=== PATIENT | female | born 1990 | race Two or more races ===

== ENCOUNTER 2016-10-23 10:15 | Outpatient (CLI) | payer OTHER, MEDICAID ==
[~2016-10-23] VITALS: Ht 157.5 cm; Wt 100.0 kg
== END 2016-10-23 11:59 | disposition home or self-care (01) ==
LOC: LDOP 10:15
PROVIDERS: ATTEND Student in an Organized Health Care Education/Training Program
DX: O26.892 Other specified pregnancy related conditions, second trimester (principal); O34.12 Maternal care for benign tumor of corpus uteri, second trimester; D25.9 Leiomyoma of uterus, unspecified; R10.9 Unspecified abdominal pain; Z3A.23 23 weeks gestation of pregnancy
CPT/HCPCS: 59025; 99201; G0463

== ENCOUNTER 2017-02-07 08:44 | Inpatient (IN) | payer OTHER, MEDICAID ==
[~2017-02-07] VITALS: Ht 157.5 cm; Wt 109.0 kg
[2017-02-07] MEDS ORDERED: OXYTOCIN 30U/ 0.9% NaCL 500ML 500 ML IV SCH (10:45)
[2017-02-07] MEDS ORDERED: LACTATED RINGERS 1,000 ML IV SCH ×2 (10:45→11:00)
[2017-02-07 10:51] VITALS: BP 121/81
[2017-02-07] MEDS ORDERED: NEWBORN KIT ONE (10:59)
[2017-02-07] MEDS ORDERED: LACTATED RINGERS 1,000 ML IVBOLUS ONE (11:00)
[2017-02-07] MEDS ORDERED: CEFAZOLIN PMX 1GM/50ML 50 ML IVPB ONE (11:00)
[2017-02-07] MEDS ORDERED: SODIUM CITRATE/CITRIC ACID 30 ML UDC PO ONE (11:00)
[2017-02-07] MEDS ORDERED: METOCLOPRAMIDE 5 MG/ML, 2ML IV ONE (11:00)
[2017-02-07 11:14] LABS: HEMATOCRIT 34.2 % (34.6-47.8); HEMOGLOBIN 11.1 g/dL (11.7-16.4); WHITE BLOOD COUNT 8.1 x10^3/uL (3.4-10)
[2017-02-07] MEDS ORDERED: METOCLOPRAMIDE 5 MG/ML, 2ML ONE (12:02)
[2017-02-07] MEDS ORDERED: SODIUM CITRATE/CITRIC ACID 30 ML UDC ONE (12:02)
[2017-02-07] MEDS ORDERED: OXYTOCIN 30U/ 0.9% NaCL 500ML 500 ML ONE (12:02)
[2017-02-07] MEDS ORDERED: OXYTOCIN 10 UNITS/ML, 1ML ONE (13:14)
[2017-02-07] MEDS ORDERED: CEFAZOLIN 1,000 MG ONE (13:14)
[2017-02-07] MEDS ORDERED: OXYcodone 5 MG/5 ML ORAL.SOL UDC PO PRN (13:30)
[2017-02-07] MEDS ORDERED: morphine SULFATE 10 MG/ML, 1ML IV PRN (13:30)
[2017-02-07] MEDS ORDERED: FENTANYL PF 100 MCG/2ML IV PRN (13:30)
[2017-02-07] MEDS ORDERED: MEPERIDINE/PF 25MG/0.5ML IVPush PRN (13:30)
[2017-02-07] MEDS ORDERED: ONDANSETRON 2MG/ML, 2ML IVPush PRN (13:30)
[2017-02-07] MEDS: LACTATED RINGERS 1,000 ML IV SCH ×3 (14:24→22:39)
[2017-02-07] MEDS: OXYTOCIN 30U/ 0.9% NaCL 500ML 500 ML IV SCH (14:24)
[2017-02-07] MEDS ORDERED: ONDANSETRON 2MG/ML, 2ML IV PRN (14:30)
[2017-02-07] MEDS ORDERED: MISOPROSTOL 200 MCG TABLET PR PRN (14:30)
[2017-02-07] MEDS ORDERED: ACETAMINOPHEN 325 MG TABLET PO PRN (14:30)
[2017-02-07] MEDS ORDERED: morphine SULFATE 10 MG/ML, 1ML IVPush PRN (14:30)
[2017-02-07] MEDS ORDERED: KETOROLAC 30 MG/1 ML ONE (15:33)
[2017-02-07] MEDS ORDERED: morphine SULFATE 10 MG/ML, 1ML ONE (15:33)
[2017-02-07] MEDS: KETOROLAC 30 MG/1 ML IV SCH ×2 (15:35→21:35)
[2017-02-07 17:00] VITALS: BP 123/76
[2017-02-07 17:34] LABS: HEMATOCRIT 29.4 % (34.6-47.8); HEMOGLOBIN 9.6 g/dL (11.7-16.4); WHITE BLOOD COUNT 11.9 x10^3/uL (3.4-10)
[2017-02-07 20:00] VITALS: BP 116/70
[2017-02-07] MEDS: OXYcodone/APAP 5/325MG TABLET PO PRN (21:35)
[2017-02-08 00:10] VITALS: BP 117/70
[2017-02-08] MEDS: OXYTOCIN 30U/ 0.9% NaCL 500ML 500 ML IV SCH ×2 (00:24→04:05)
[2017-02-08] MEDS: LACTATED RINGERS 1,000 ML IV SCH ×4 (00:24→06:33)
[2017-02-08] MEDS: OXYcodone IR 5MG TABLET PO PRN ×4 (01:45→20:36)
[2017-02-08] MEDS: KETOROLAC 30 MG/1 ML IV SCH ×4 (03:55→21:41)
[2017-02-08 04:02] VITALS: BP 111/62
[2017-02-08] MEDS: OXYcodone/APAP 5/325MG TABLET PO PRN (05:40)
[2017-02-08 06:21] LABS: HEMATOCRIT 24.9 % (34.6-47.8); HEMOGLOBIN 8.1 g/dL (11.7-16.4); WHITE BLOOD COUNT 8.2 x10^3/uL (3.4-10)
[2017-02-08] MEDS ORDERED: PRENATAL VIT/IRON/FA 1 EACH TABLET ONE (07:48)
[2017-02-08] MEDS: PRENATAL VIT/IRON/FA 1 EACH TABLET PO SCH (07:50)
[2017-02-08] MEDS: FERROUS SULFATE 325 MG TABLET PO SCH ×2 (07:50→15:37)
[2017-02-08 08:40] VITALS: BP 120/62
[2017-02-08 12:44] VITALS: BP 108/61
[2017-02-08 19:15] VITALS: BP 108/57
[2017-02-08] MEDS: DOCUSATE 100 MG CAPSULE PO PRN (20:36)
[2017-02-09] MEDS: OXYcodone IR 5MG TABLET PO PRN ×5 (00:50→22:14)
[2017-02-09] MEDS: KETOROLAC 30 MG/1 ML IV SCH ×2 (03:38→09:55)
[2017-02-09] MEDS: OXYTOCIN 30U/ 0.9% NaCL 500ML 500 ML IV SCH ×2 (06:24→16:24)
[2017-02-09] MEDS: LACTATED RINGERS 1,000 ML IV SCH ×4 (06:24→22:24)
[2017-02-09 07:50] VITALS: BP 100/63
[2017-02-09] MEDS: PRENATAL VIT/IRON/FA 1 EACH TABLET PO SCH (08:49)
[2017-02-09] MEDS: FERROUS SULFATE 325 MG TABLET PO SCH ×2 (08:49→16:30)
[2017-02-09] MEDS: DOCUSATE 100 MG CAPSULE PO PRN ×2 (08:49→22:14)
[2017-02-09] MEDS: IBUPROFEN 600 MG TABLET PO PRN ×2 (16:30→22:14)
[2017-02-09 19:50] VITALS: BP 102/65
[2017-02-10] MEDS: OXYTOCIN 30U/ 0.9% NaCL 500ML 500 ML IV SCH (02:24)
[2017-02-10] MEDS: LACTATED RINGERS 1,000 ML IV SCH ×2 (02:24→06:24)
[2017-02-10] MEDS ORDERED: IBUP-1222 PO (03:43)
[2017-02-10] MEDS ORDERED: OXYC-302 PO (03:44)
[2017-02-10] MEDS: OXYcodone IR 5MG TABLET PO PRN (05:24)
[2017-02-10] MEDS: IBUPROFEN 600 MG TABLET PO PRN (05:24)
[2017-02-10 07:30] VITALS: BP 127/79
[2017-02-10] MEDS: PRENATAL VIT/IRON/FA 1 EACH TABLET PO SCH (07:36)
[2017-02-10] MEDS: FERROUS SULFATE 325 MG TABLET PO SCH (07:36)
[2017-02-10] MEDS: DOCUSATE 100 MG CAPSULE PO PRN (07:36)
== END 2017-02-10 12:30 | disposition home or self-care (01) | DRG 766 ==
LOC: LDIP 10:16 → 2NW 16:25
PROVIDERS: ADMIT Obstetrics & Gynecology; ATTEND Obstetrics & Gynecology
PROC: 10D00Z1 Extraction of Products of Conception, Low, Open Approach (ICD-10-PCS; principal; 2017-02-07)
DX: O34.211 Maternal care for low transverse scar from previous cesarean delivery (principal); D25.9 Leiomyoma of uterus, unspecified; O34.13 Maternal care for benign tumor of corpus uteri, third trimester; Z3A.38 38 weeks gestation of pregnancy; Z37.0 Single live birth
CPT/HCPCS: 36415; 82803; 85025; 85027; 86850; 86900; J0690; J1885; J2405; J2590; J2765; J7120

== ENCOUNTER → 2019-08-13 | Outpatient (CLI) | payer OTHER, MEDICAID ==
[~2019-08-13] MED LIST: IBUP-1222 PO; OXYC-302 PO; PHEN37.53 PO
[2019-08-13 11:14] LABS: BASOPHILS # (AUTO) 0.02 x10^3/uL (0-0.1); BASOPHILS % (AUTO) 0 % (0-1); EOSINOPHILS # (AUTO) 0.21 x10^3/uL (0-0.4); EOSINOPHILS % (AUTO) 2 % (1-7); LYMPHOCYTES # (AUTO) 2.68 x10^3/uL (1-3.4); LYMPHOCYTES % (AUTO) 31 % (22-44); MD NO; MEAN CORPUSCULAR HEMOGLOBIN 30.1 pg (27.0-34.8); MEAN CORPUSCULAR HGB CONC 33.5 g/dL (32.4-35.8); MEAN CORPUSCULAR VOLUME 89.7 fL (80-100); MEAN PLATELET VOLUME 9.7 fL (7.4-10.4); MONOCYTES # (AUTO) 0.43 x10^3/uL (0.2-0.8); MONOCYTES % (AUTO) 5 % (2-9); NEUTROPHILS # (AUTO) 5.36 x10^3/uL (1.8-6.8); NEUTROPHILS % (AUTO) 62 % (42-75); PLATELET COUNT 312 x10^3/uL (130-400); RED BLOOD COUNT 4.56 x10^6/uL (3.82-5.3); RED CELL DISTRIBUTION WIDTH 13.3 % (9.6-15.2)
[2019-08-13 11:21] LABS: MICROSCOPIC NOT IND
[2019-08-13 11:27] LABS: ALBUMIN 3.6 g/dL (3.4-5.0); ANION GAP 5 mmol/L (5-15); CHLORIDE 108 mmol/L (98-107)
[2019-08-13 11:35] LABS: ALANINE AMINOTRANSFERASE 23 U/L (12-78); ALKALINE PHOSPHATASE 63 U/L (45-117); BILIRUBIN,TOTAL 0.4 mg/dL (0.2-1.0); CREATININE 0.84 mg/dL (0.55-1.02); TOTAL PROTEIN 7.8 g/dL (6.4-8.2)
== END | disposition home or self-care (01) ==
LOC: STAR 10:06
PROVIDERS: ATTEND Obstetrics & Gynecology
DX: Z01.818 Encounter for other preprocedural examination (principal); Z11.59 Encounter for screening for other viral diseases; R10.2 Pelvic and perineal pain; N92.0 Excessive and frequent menstruation with regular cycle; D25.9 Leiomyoma of uterus, unspecified
CPT/HCPCS: 36415; 80053; 81003; 84702; 85025; 93005; U0001

== ENCOUNTER 2019-08-18 10:16 | Inpatient (IN) | payer OTHER, MEDICAID ==
[~2019-08-18] VITALS: Ht 158.8 cm; Wt 95.0 kg
[2019-08-18] MEDS ORDERED: LACTATED RINGERS 1,000 ML IV SCH (11:11)
[2019-08-18] MEDS ORDERED: CHLORHEXIDINE 15 ML UDC MM ONE (11:30)
[2019-08-18 11:48] LABS: HCG UR SG 1.015 (1.003-1.030)
[2019-08-18] MEDS ORDERED: MIDAZOLAM 1 MG/ML, 2ML ONE (12:21)
[2019-08-18] MEDS ORDERED: FENTANYL PF 250 MCG/5ML ONE ×2 (12:23→12:54)
[2019-08-18] MEDS ORDERED: DEXAMETHASONE 4 MG/ML, 1ML ONE ×2 (12:29→12:34)
[2019-08-18] MEDS ORDERED: ROCURONIUM 10MG/ML,5ML ONE (12:29)
[2019-08-18] MEDS ORDERED: SUCCINYLCHOLINE 20 MG/ML, 10ML ONE (12:29)
[2019-08-18] MEDS ORDERED: CEFAZOLIN 1,000 MG ONE ×2 (12:29→12:34)
[2019-08-18] MEDS ORDERED: PROPOFOL 10 MG/ML, 20ML ONE (12:29)
[2019-08-18] MEDS ORDERED: KETOROLAC 30 MG/1 ML ONE (12:34)
[2019-08-18] MEDS ORDERED: ONDANSETRON 2MG/ML, 2ML ONE ×2 (13:45→13:46)
[2019-08-18] MEDS ORDERED: SUGAMMADEX 200 MG/2 ML IVPush ONE (13:45)
[2019-08-18] MEDS ORDERED: FENTANYL PF 100 MCG/2ML ONE ×2 (13:56→14:28)
[2019-08-18] MEDS: FENTANYL PF 100 MCG/2ML IV PRN ×2 (14:30→14:40)
[2019-08-18] MEDS ORDERED: ONDANSETRON 2MG/ML, 2ML IVPush PRN (14:30)
[2019-08-18] MEDS ORDERED: PROMETHAZINE 12.5 MG SUPP PR PRN (14:30)
[2019-08-18] MEDS ORDERED: ALBUTEROL SULFATE 2.5 MG/3 ML NPPB PRN (14:30)
[2019-08-18] MEDS ORDERED: OXYcodone 5 MG/5 ML ORAL.SOL UDC PO PRN (14:30)
[2019-08-18] MEDS ORDERED: ACETAMINOPHEN 325 MG TABLET PO PRN ×2 (14:30→17:00)
[2019-08-18] MEDS ORDERED: LABETALOL 5MG/ML, 20ML IV PRN (14:30)
[2019-08-18] MEDS ORDERED: EPHEDRINE 50 MG/ML, 1ML IVPush PRN (14:30)
[2019-08-18] MEDS ORDERED: MEPERIDINE/PF 25MG/0.5ML IVPush PRN (14:30)
[2019-08-18] MEDS ORDERED: DIPHENHYDRAMINE 50 MG/ML, 1ML IVPush PRN (14:30)
[2019-08-18] MEDS ORDERED: PROMETHAZINE 25 MG/ML, 1ML IVPush PRN (14:30)
[2019-08-18] MEDS ORDERED: hydrALAzine 20 MG/ML, 1ML IV PRN (14:30)
[2019-08-18] MEDS ORDERED: HYDROmorphone 1 MG/ML, 1ML INJ ONE (14:54)
[2019-08-18] MEDS: HYDROmorphone 1 MG/ML, 1ML INJ IVPush PRN ×2 (14:57→15:08)
[2019-08-18] MEDS ORDERED: LABETALOL 5MG/ML, 20ML ONE (15:22)
[2019-08-18] MEDS ORDERED: ACETAMINOPHEN 650 MG SUPP PR PRN (17:00)
[2019-08-18] MEDS ORDERED: IBUPROFEN 600 MG TABLET PO PRN (17:00)
[2019-08-18] MEDS: D5%-0.45% NACL 1,000 ML IV SCH (18:31)
[2019-08-18 18:46] VITALS: BP 128/81
[2019-08-18] MEDS: ONDANSETRON 2MG/ML, 2ML IV PRN (20:15)
[2019-08-18] MEDS: SODIUM CHLORIDE FLUSH 10ML SYR IVF SCH (21:00)
[2019-08-18 23:42] VITALS: BP 116/77
[2019-08-19] MEDS: D5%-0.45% NACL 1,000 ML IV SCH ×3 (01:00→16:43)
[2019-08-19 02:50] VITALS: BP 122/77
[2019-08-19] MEDS: KETOROLAC 30 MG/1 ML IV PRN ×4 (06:26→22:45)
[2019-08-19] MEDS: OXYcodone/APAP 5/325MG TABLET PO PRN ×5 (06:27→22:45)
[2019-08-19 07:15] VITALS: BP 122/83
[2019-08-19] MEDS: ONDANSETRON 2MG/ML, 2ML IV PRN (08:18)
[2019-08-19] MEDS: SODIUM CHLORIDE FLUSH 10ML SYR IVF SCH ×2 (08:20→21:00)
[2019-08-19 13:55] VITALS: BP 140/85
[2019-08-19 19:21] VITALS: BP 121/80
[2019-08-20] MEDS: D5%-0.45% NACL 1,000 ML IV SCH ×3 (00:03→15:20)
[2019-08-20 02:20] VITALS: BP 116/77
[2019-08-20] MEDS: OXYcodone/APAP 5/325MG TABLET PO PRN ×5 (02:33→20:29)
[2019-08-20 05:31] LABS: BASOPHILS # (AUTO) 0.03 x10^3/uL (0-0.1); BASOPHILS % (AUTO) 0 % (0-1); EOSINOPHILS # (AUTO) 0.08 x10^3/uL (0-0.4); EOSINOPHILS % (AUTO) 1 % (1-7); LYMPHOCYTES # (AUTO) 3.37 x10^3/uL (1-3.4); LYMPHOCYTES % (AUTO) 46 % (22-44); MD NO; MEAN CORPUSCULAR HEMOGLOBIN 29.5 pg (27.0-34.8); MEAN CORPUSCULAR HGB CONC 32.7 g/dL (32.4-35.8); MEAN CORPUSCULAR VOLUME 90.2 fL (80-100); MONOCYTES # (AUTO) 0.45 x10^3/uL (0.2-0.8); MONOCYTES % (AUTO) 6 % (2-9); NEUTROPHILS # (AUTO) 3.43 x10^3/uL (1.8-6.8); NEUTROPHILS % (AUTO) 47 % (42-75); PLATELET COUNT 227 x10^3/uL (130-400); RED BLOOD COUNT 3.73 x10^6/uL (3.82-5.3); RED CELL DISTRIBUTION WIDTH 13.4 % (9.6-15.2)
[2019-08-20] MEDS: SODIUM CHLORIDE FLUSH 10ML SYR IVF SCH ×2 (07:13→21:00)
[2019-08-20 08:00] VITALS: BP 118/76
[2019-08-20] MEDS: KETOROLAC 30 MG/1 ML IV PRN ×2 (08:24→14:28)
[2019-08-20] MEDS: ONDANSETRON 2MG/ML, 2ML IV PRN (12:18)
[2019-08-20 13:19] VITALS: BP 122/73
[2019-08-20 19:59] VITALS: BP 126/78
[2019-08-21] MEDS: D5%-0.45% NACL 1,000 ML IV SCH ×2 (01:00→06:20)
[2019-08-21 01:40] VITALS: BP 110/69
[2019-08-21] MEDS: OXYcodone/APAP 5/325MG TABLET PO PRN ×3 (01:46→10:21)
[2019-08-21 08:00] VITALS: BP 118/79
[2019-08-21] MEDS: SODIUM CHLORIDE FLUSH 10ML SYR IVF SCH (08:34)
[2019-08-21] MEDS ORDERED: OXYC-302 PO (10:34)
[2019-08-21] MEDS ORDERED: IBUP200T49 PO (10:35)
== END 2019-08-21 11:05 | disposition home or self-care (01) | DRG 743 ==
LOC: ORIP 10:29 → 4NE 16:25 → DCLOUNGE 08-21 10:55
PROVIDERS: ADMIT Obstetrics & Gynecology; ATTEND Obstetrics & Gynecology
PROC: 0UT90ZZ Resection of Uterus, Open Approach (ICD-10-PCS; 2019-08-18)
PROC: 0UT70ZZ Resection of Bilateral Fallopian Tubes, Open Approach (ICD-10-PCS; principal; 2019-08-18 14:00)
DX: D25.9 Leiomyoma of uterus, unspecified (principal); E66.9 Obesity, unspecified; N32.89 Other specified disorders of bladder; N92.0 Excessive and frequent menstruation with regular cycle; Z98.891 History of uterine scar from previous surgery; Z68.37 Body mass index [BMI] 37.0-37.9, adult
CPT/HCPCS: 36415; 81025; 85014; 85018; 85025; 86850; 86900; 88307; G0378; J0690; J1100; J1170; J1885; J2250; J2270; J2405; J2704; J3010; J0330; J7120; U0001-CS